=== PATIENT | female | born 2000 | race Caucasian/White ===

== ENCOUNTER 2020-11-20 17:26 | Emergency (ER) | payer BC, SELFPAY ==
--- NOTE | ~2020-11-20 | CT_ITS ---
EXAMINATION: CTA brain carotid DATE: 11/20/2020 21:53 INDICATION: Altered mental status. Memory loss. TECHNIQUE: Computed tomographic angiography (CTA) of the head was performed without and with 100 mL O mnipaque-350 intravenous contrast. CTA of the neck was performed with intravenous contrast. Automated exposure control and iterative reconstruction technique were employed. The dose-length product was 1 543.54 mGy-cm. Maximum intensity projection and volume rendered 3D-reconstructions were created by shila tarango technologist on a separate workstation. COMPARISON: None. FINDINGS: HEAD CTA: There is no intracranial hemorrhage, acute infarction, or abnormal intracranial mass lesion . The ventricles are normal in size. The paranasal sinuses are clear. The orbits are normal. The mast oid air cells are normal. The vertebral arteries are codominant. There is no significant stenosis of basilar artery or the posterior cerebral arteries. There is no significant stenosis of the intracrani al internal carotid arteries or anterior or middle cerebral arteries. Anterior communicating artery i s normal. The posterior communicating arteries are normal. There is no aneurysm. NECK CTA: There are no pathologically enlarged lymph nodes. There is no significant stenosis of the v ertebral arteries. There is no visible plaque in the proximal internal carotid arteries. There is 0% stenosis of the proximal right internal carotid artery relative to normal distal artery lumen diamete r (NASCET criteria). There is 0% stenosis of the proximal left internal carotid artery relative to no rmal distal artery lumen diameter. 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 IMPRESSION: 1. Normal brain. No aneurysm or significant intracranial arterial stenosis. 2. Normal neck arteries. Reviewed, dictated and finalized at location A.
--- NOTE | ~2020-11-20 | XR_ITS ---
EXAMINATION: XR chest 1V portable DATE: 11/20/2020 20:05 INDICATION: Memory loss. TECHNIQUE: A single frontal view of the chest was obtained. COMPARISON: None. FINDINGS: The chest demonstrates clear lungs without pneumonia, pleural effusion, or pneumothorax. Th e heart size is normal. IMPRESSION: 1. No acute cardiopulmonary disease. Reviewed, dictated and finalized at location A.
[2020-11-20 17:31] VITALS: BP 158/118; PULSE 100; RESP 16; TEMP 36.5; O2SAT 98
--- NOTE | 2020-11-20 17:41 | ECG_ITS ---
Measurements Intervals [place] Rate: 89 P: 30 WA: 131 QRS: 13 QRSD: 86 T: 60 QT: 339 QTc: 414 Interpretive Statements SINUS RHYTHM WITH SINUS ARRHYTHMIA NORMAL ECG Electronically Signed On 11-20-2020 19:57:08 CDT by Beau Bonner D.O.
[2020-11-20 18:39] LABS: Anion Gap 12 mmol/L (8-16); Basophils Absolute Auto 0.1 K/mm3 (0.0-0.1); Basophils Percent Auto 0.5 % (0.2-1.2); Blood Urea Nitrogen 7 mg/dL (7-17); Calcium 10.1 mg/dL (8.4-10.2); Carbon Dioxide 27 mmol/L (22-30); Chloride 102 mmol/L (98-107); Eosinophils Absolute Auto 0.2 K/mm3 (0-0.3); Eosinophils Percent Auto 1.4 % (0-4.4); Estimated CRCL calculation 118 ml/min; Estimated Glomerular Filt Rate > 60; Glucose 131 mg/dL (65-110); Hematocrit 40.1 % (37.0-47.0); Hemoglobin 12.9 g/dL (12.0-15.0); Immature Granulocyte Absolute 0.09 K/mm3 (0.00-0.031); Immature Granulocyte Percent A 0.6 % (0-0.5); Lymphocytes Absolute Auto 3.43 K/mm3 (0.9-3.2); Lymphocytes Percent Auto 22.5 % (18.3-44.2); Mean Corpuscular HGB Conc 32.2 g/dl (32-36); Mean Corpuscular Hemoglobin 27.5 pg (26-34); Mean Corpuscular Volume 85.5 fl (80-100); Mean Platelet Volume 8.7 fl (7.4-10.4); Monocytes Absolute Auto 1.2 K/mm3 (0.1-0.6); Neutrophils Absolute Auto 10.2 K/mm3 (1.3-6.7); Platelet Count Result 460 k/mm3 (150-375); Potassium 3.7 mmol/L (3.4-5.0); Red Blood Count 4.69 M/mm3 (4.2-5.4); Red Cell Distribution Width 12.4 % (11.5-14.5); Sodium 141 mmol/L (137-145); White Blood Count 15.3 K/mm3 (4.5-10.0)
[2020-11-20 18:43] LABS: Partial Thromboplastin Time 31.4 SECONDS (22.3-36.8)
[2020-11-20 18:49] LABS: Troponin I < 0.012 ng/mL (0.000-0.034)
[2020-11-20 19:15] LABS: Add Urine Microscopic? NO; Appearance Urine Clear (Clear); Bacteria Urine Trace /hpf; Bilirubin Urine Negative (Negative); Blood Urine Negative (Negative); Color Urine Colorless (Yellow); Glucose Urine UA Negative (Negative); Ketones Urine Negative (Negative); Leukocyte Esterase Ur Negative LEU/UL (Negative); Mucus Urine Rare /lpf; Nitrate Urine Negative (Negative); Protein Urine Negative (Negative); RBC Urine 0-2 /hpf (0-2); Specific Grav Ur 1.005 (1.001-1.035); Squamous Epithelial Cell Urine Occasional /hpf (Few); Urobilinogen Urine Negative mg/dL (<2.0); WBC Urine 0-3 /hpf
--- NOTE | 2020-11-20 19:59 | ED.GENADULT ---
HPI - General Adult General Chief complaint: Unspecified Stated complaint: memory issues Time Seen by Provider: 11/20/20 19:52 Source: RN notes reviewed History of Present Illness HPI narrative: Patient presents emergency department from home for altered mental status. Patient states that today she walked into her kitchen note approximately 30-minute episode where she did not know anything was in her kitchen she states she knew she was coming in there to get class but could not recall where the glasses were or where anything else was in the kitchen she states that this resolved after approximately 30 seconds to a minute. She states she had no unilateral deficit during that time no difficulty talking she states she has been fine with no other episodes of confusion since this episode occurred she denies any fevers or chills, chest pain shortness of breath abdominal pain nausea vomiting or any other symptoms patient states she does have anxiety and has been under increased stress recently Related Data Allergies Allergy/AdvReac Type Severity Reaction Status Date / Time No Known Allergies Allergy Unverified 04/17/18 17:05 Review of Systems Review of Systems: Gen.: Denies fevers or chills Eyes: Denies eye pain or visual change ENT: Denies congestion Respiratory: Denies shortness of breath or cough CV: Denies chest pain or palpitations GI: Denies abdominal pain nausea, emesis or diarrhea Musculoskeletal: Denies back pain or muscle pain Neuro: See HPI Skin: Denies rash Psych: Reports anxiety Except as documented, all other systems reviewed and negative [facility] Past Medical History Medical History (Updated 11/20/20 @ 22:16 by Josue Leigh DO) Patient denies significant medical history Social History Social History (Updated 11/20/20 @ 20:01 by Josue Leigh DO) Smoking status: Never smoker Exam Narrative: APPEARANCE: No acute distress, nontoxic, resting in bed HEENT: Normocephalic, atraumatic, OMM, EYES: PERRL, EOMI NECK: Supple, nontender, full range of motion without pain, no meningismus RESPIRATORY: No respiratory distress, clear to auscultation bilaterally with no rhonchi wheezing or rales CARDIOVASCULAR: RRR s murmur ABDOMINAL: Soft, nontender, nondistended MUSCULOSKELETAL: Moves all extremities. No clubbing, cyanosis or edema. NEURO: A and O ?3, following commands, speech normal, cranial nerves II through XII grossly intact,muscle strength 5 out of 5 bilateral upper and lower extremities no pronator drift SKIN:: Warm, dry. Normal Color PSYCHIATRIC: Normal affect/mood Course Course Emergency Course: Patient has remained awake and alert throughout her stay in the ED with no further episodes Discussed with patient results of workup and diagnosis. Discussed need for follow-up with primary care, proper use of medication, and reasons to return to the emergency department. Patient understands and agrees to current treatment plan Vital Signs Vital signs: Vital Signs Temperature 97.7 F 11/20/20 17:31 Pulse Rate 100 11/20/20 17:31 Respiratory Rate 16 11/20/20 17:31 Blood Pressure 158/118 H 11/20/20 17:31 Pulse Oximetry 98 11/20/20 17:31 Temperature 97.7 F 11/20/20 17:31 Pulse Rate 100 11/20/20 17:31 Respiratory Rate 16 11/20/20 17:31 Blood Pressure 158/118 H 11/20/20 17:31 Pulse Oximetry 98 11/20/20 17:31 Medical Decision Making [facility] Narrative Medical decision making narrative: Patient presents with a brief 30-second to 1 minute episode of confusion at home earlier today states she has been under increased stress she had no unilateral deficits she has had no episodes since that time work-up in the ER shows lab work within normal limits she does have a mild elevation of her white blood cell count she has a negative UA negative chest x-ray no fevers suspect is secondary to stress she has no unilateral deficits with a normal neuro exam CT of the head is negative will discharge to
[2020-11-20 22:23] VITALS: BP 131/85; PULSE 76; RESP 18; O2SAT 100
== END 2020-11-20 23:04 | disposition home or self-care (01) ==
PROVIDERS: Emergency Provider Emergency Medicine
DX: R41.82 Altered mental status, unspecified (principal)
CPT/HCPCS: 36415; 70496; 70498; 71045; 80048; 81003; 81025; 84484; 85025; 85610; 85730; 93005; 99284; Q9967

== ENCOUNTER 2021-05-30 22:51 | Emergency (ER) | payer BC, SELFPAY ==
[2021-05-30 22:53] VITALS: BP 154/104; PULSE 121; RESP 18; TEMP 36.4; O2SAT 100
--- NOTE | 2021-05-30 23:59 | PC.NURSE ---
Addendum entered by Kiran Lazo RN 05/31/21 02:03: Beginning of note should read, Pt to triage desk Original Note: Pt to ED reporting that she feels fine and wants to go home and see if the pin passes on her own. I informed the pt that I could not give her medical advice before she sees a physician but she can return to the ED at any time with any concerns or complaints. Pt A&Ox4 and in no acute distress.
== END 2021-05-30 23:59 | disposition left against medical advice (07) ==
LOC: ANHED 05-31 00:28
DX: T17.298A Other foreign object in pharynx causing other injury, initial encounter (principal)
CPT/HCPCS: 99199

== ENCOUNTER 2021-05-31 00:48 | Emergency (ER) | payer BC, SELFPAY ==
--- NOTE | ~2021-05-31 | XR_ITS ---
EXAMINATION: XR chest 2V DATE: 05/31/2021 01:39 INDICATION: Foreign body ingestion. TECHNIQUE: Frontal and lateral views of the chest were obtained. COMPARISON: Chest single view 11/20/2020, chest CT 05/31/2021 FINDINGS: There is a 3.5 cm pin in right middle lobe. No pneumonia, pleural effusion, or pneumothorax . The heart size is normal. IMPRESSION: 1. Pin in right lung middle lobe. Reviewed, dictated and finalized at location A.
--- NOTE | ~2021-05-31 | CT_ITS ---
EXAMINATION: CT chest abdomen pelvis wo con DATE: 05/31/2021 03:14 INDICATION: Foreign body. TECHNIQUE: Computed tomography (CT) of the chest, abdomen, and pelvis was performed without intraveno us contrast. Automated exposure control and iterative reconstruction technique were employed. The dos e-length product was 937.37 mGy-cm. COMPARISON: None FINDINGS: CHEST CT: There is a 3.5 cm pin in a right middle lobe bronchus. There is minimal atelectasis in the lungs. No pleural effusion. The heart size is normal. No pericardial effusion. ABDOMEN/PELVIS CT: The liver, gallbladder, spleen, pancreas, adrenal glands, and kidneys are normal. There is no urolith iasis. There are no dilated loops of bowel. The appendix is normal. There are no pathologically enlar ged lymph nodes. There is no free intraperitoneal fluid. There is mild lumbar spondylosis. IMPRESSION: 1. Pin in a right middle lobe bronchus. Reviewed, dictated and finalized at location A.
--- NOTE | ~2021-05-31 | XR_ITS ---
EXAMINATION: XR abdomen/kub 1V DATE: 05/31/2021 01:38 INDICATION: Foreign body ingestion. TECHNIQUE: A supine view of the abdomen on 2 radiographs was obtained. COMPARISON: CT 05/31/2021 FINDINGS: There are no dilated loops of bowel. There is a small volume of stool in the colon. IMPRESSION: 1. No radiopaque foreign body. Reviewed, dictated and finalized at location A.
[2021-05-31 00:55] VITALS: BP 158/92; PULSE 89; RESP 18; TEMP 36.3; O2SAT 100
[2021-05-31 01:04] VITALS: BP 158/92; PULSE 89; TEMP 36.3; O2SAT 100
--- NOTE | 2021-05-31 01:05 | ED.GENADULT ---
HPI - General Adult General Chief complaint: Unspecified Stated complaint: swallowed a pin Time Seen by Provider: 05/31/21 01:02 History of Present Illness HPI narrative: 21-year-old female presents the emergency room for evaluation of a accidental swallowing of foreign body. Patient states that she accidentally swallowed a sewing needle. Denies any sharp sensation when she swallows, Related Data Home Medications Medication Instructions Recorded Confirmed No Home Medications 05/31/21 05/31/21 Allergies Allergy/AdvReac Type Severity Reaction Status Date / Time Penicillins Allergy Unknown Verified 05/31/21 01:51 Review of Systems Review of Systems: CONSTITUTIONAL: Denies fever, chills, or sweats. EYES: Denies visual changes, redness, or discharge. ENT: Denies rhinorrhea, congestion, sore throat, or otalgia. CARDIOVASCULAR: Denies chest pain, palpitations, or edema. RESPIRATORY: Denies cough or dyspnea. GASTROINTESTINAL: Denies abdominal pain, nausea, vomiting, or diarrhea. GENITOURINARY: Denies dysuria or hematuria. SKIN: Denies rash or itching. MUSCULOSKELETAL: Denies back pain, joint pain, or myalgia. NEUROLOGIC: Denies headache, numbness, dizziness, or weakness. PSYCHIATRIC: Denies anxiety or depression. PMFSH Past Medical History Medical History Patient denies significant medical history Social History Social History Smoking status: Never smoker Exam Narrative: GENERAL: Well-appearing, well-nourished, and in no acute distress. HEAD: Normocephalic, atraumatic CHEST: Clear to auscultation. No respiratory distress. No wheezes rales or rhonchi HEART: Regular rate and rhythm. No murmur heard. Normal peripheral pulses. ABDOMEN: Soft, nontender, nondistended, normal active bowel sounds. EXTREMITIES: Normal range of motion. No edema. SKIN: Warm, dry, no rash. NEURO: No focal deficits. Alert and oriented x3. PSYCH: Normal mood and affect. Course Vital Signs Vital signs: Vital Signs Temperature 36.3 C L 05/31/21 00:55 Pulse Rate 89 05/31/21 00:55 Respiratory Rate 18 05/31/21 00:55 Blood Pressure 158/92 H 05/31/21 00:55 Pulse Oximetry 100 05/31/21 00:55 Temperature 36.3 C L 05/31/21 01:04 Pulse Rate 88 05/31/21 03:21 Respiratory Rate 18 05/31/21 03:21 Blood Pressure 143/108 H 05/31/21 03:21 Pulse Oximetry 100 05/31/21 03:21 Medical Decision Making Vital Signs Vital Signs: Vital Signs Temperature 36.3 C L 05/31/21 00:55 Pulse Rate 89 05/31/21 00:55 Respiratory Rate 18 05/31/21 00:55 Blood Pressure 158/92 H 05/31/21 00:55 Pulse Oximetry 100 05/31/21 00:55 Temperature 36.3 C L 05/31/21 01:04 Pulse Rate 88 05/31/21 03:21 Respiratory Rate 18 05/31/21 03:21 Blood Pressure 143/108 H 05/31/21 03:21 Pulse Oximetry 100 05/31/21 03:21 Lab Data Result diagrams: 05/31/21 02:32 05/31/21 02:32 Labs: Lab Results 05/31/21 05/31/21 Range/Units 02:32 02:32 WBC 15.3 H (4.5-10.0) K/mm3 RBC 4.10 L (4.2-5.4) M/mm3 Hgb 11.4 L (12.0-15.0) g/dL Hct 34.4 L (37.0-47.0) % MCV 83.9 (80-100) fl MCH 27.8 (26-34) pg MCHC 33.1 (32-36) g/dl RDW 12.8 (11.5-14.5) % Plt Count 415 H (150-375) k/mm3 MPV 8.8 (7.4-10.4) fl Immature Gran % (Auto) 0.7 H (0-0.5) % Neut % (Auto) 77.8 H (45.5-73.1) % Lymph % (Auto) 15.2 L (18.3-44.2) % [place] % (Auto) 5.6 (2.6-8.5) % Eos % (Auto) 0.3 (0-4.4) % Baso % (Auto) 0.4 (0.2-1.2) % Lymph # (Auto) 2.33 (0.9-3.2) K/mm3 [place] # (Auto) 0.9 H (0.1-0.6) K/mm3 Eos # (Auto) 0.0 (0-0.3) K/mm3 Baso # (Auto) 0.1 (0.0-0.1) K/mm3 Abs Immat Gran (auto) 0.10 H (0.00-0.031) K/mm3 Absolute Neuts (auto) 11.9 H (1.3-6.7) K/mm3 Absolute Nucleated RBC 0.0 (0.0-0.012) K/mm3 Nucleated RBC % 0.0 (0.0-0.2) %
[2021-05-31 01:53] VITALS: BP 148/105; PULSE 110; RESP 20; O2SAT 100
[2021-05-31 02:27] VITALS: BP 128/98; PULSE 101; RESP 18; O2SAT 100
[2021-05-31] MEDS: SODIUM CHLORIDE 0.9% IV 1,000 ML 999 ML IV CONT (02:38)
[2021-05-31 02:41] LABS: Basophils Absolute Auto 0.1 K/mm3 (0.0-0.1); Basophils Percent Auto 0.4 % (0.2-1.2); Eosinophils Percent Auto 0.3 % (0-4.4); Hematocrit 34.4 % (37.0-47.0); Hemoglobin 11.4 g/dL (12.0-15.0); Immature Granulocyte Percent A 0.7 % (0-0.5); Lymphocytes Absolute Auto 2.33 K/mm3 (0.9-3.2); Lymphocytes Percent Auto 15.2 % (18.3-44.2); Mean Corpuscular HGB Conc 33.1 g/dl (32-36); Mean Corpuscular Hemoglobin 27.8 pg (26-34); Mean Corpuscular Volume 83.9 fl (80-100); Mean Platelet Volume 8.8 fl (7.4-10.4); Monocytes Absolute Auto 0.9 K/mm3 (0.1-0.6); Monocytes Percent Auto 5.6 % (2.6-8.5); Neutrophils Absolute Auto 11.9 K/mm3 (1.3-6.7); Neutrophils Percent Auto 77.8 % (45.5-73.1); Platelet Count Result 415 k/mm3 (150-375); Red Cell Distribution Width 12.8 % (11.5-14.5); White Blood Count 15.3 K/mm3 (4.5-10.0)
[2021-05-31 02:51] LABS: Alanine Aminotransferase 15 U/L (4-35); Albumin Level 4.6 g/dL (3.5-5.1); Alkaline Phosphatase 76 U/L (38-126); Anion Gap 10 mmol/L (8-16); Aspartate Amino Transferase 23 U/L (14-36); Bilirubin,Total < 0.1 mg/dL (0.2-1.3); Blood Urea Nitrogen 11 mg/dL (7-17); Calcium 8.9 mg/dL (8.4-10.2); Carbon Dioxide 23 mmol/L (22-30); Chloride 107 mmol/L (98-107); Estimated CRCL calculation 113 ml/min; Estimated Glomerular Filt Rate > 60; Glucose 114 mg/dL (65-110); Potassium 3.5 mmol/L (3.4-5.0); Sodium 140 mmol/L (137-145)
--- NOTE | 2021-05-31 03:06 | PC.NURSE ---
Pt to Ct via stretcher at this time.
[2021-05-31 03:21] VITALS: BP 143/108; PULSE 88; RESP 18; O2SAT 100
--- NOTE | 2021-05-31 03:40 | PC.NURSE ---
Pt transported to [facility] with fluid bolus still infusing.
== END 2021-05-31 03:40 | disposition short-term general hospital (02) ==
LOC: ANHED 01:46
PROVIDERS: Emergency Provider Nurse Practitioner Family
DX: T17.598A Other foreign object in bronchus causing other injury, initial encounter (principal)
CPT/HCPCS: 36415; 71046; 71250; 74018; 74176; 80053; 85025; 96360; 99285; J7030